=== PATIENT | male | born 1990 | race African-American/Black ===

== ENCOUNTER 2021-01-16 02:25 | Emergency (ER) | payer MEDICAID ==
[~2021-01-16] VITALS: Ht 177.8 cm; Wt 84.8 kg
[2021-01-16] MEDS ORDERED: LORazepam 1MG TABLET ONE (02:47)
--- NOTE | 2021-01-16 02:50 | NUR ---
Pt states "I want to stab myself in the throat" reports hearing voices, takes zyprexa. Garage doors down, belongings to storage locker, CN informed. Will continue to monitor.
--- NOTE | 2021-01-16 02:55 | NUR ---
PATIENT HAS 3 BELONGING BAGS, AND A BLACK BACK-PACK. ALL PLACED IN PSYCH LOCKER BIN #[id number]
[2021-01-16] MEDS ORDERED: LORazepam 1MG TABLET PO ONE (03:00)
[2021-01-16 03:25] LABS: BASOPHILS % (AUTO) 1 % (0-1); EOSINOPHILS % (AUTO) 1 % (1-7); LYMPHOCYTES % (AUTO) 30 % (22-44); MEAN CORPUSCULAR HEMOGLOBIN 34.1 pg (27.5-34.5); MEAN PLATELET VOLUME 7.7 fL (7.4-10.4); MONOCYTES % (AUTO) 6 % (2-9); NEUTROPHILS % (AUTO) 62 % (42-75); PLATELET COUNT 279 x10^3/uL (130-400); RED BLOOD COUNT 4.34 x10^6/uL (4.38-5.82); RED CELL DISTRIBUTION WIDTH 13.2 % (9.4-14.8)
[2021-01-16 03:28] LABS: MD NO
[2021-01-16 03:36] LABS: ANION GAP 4 mmol/L (5-15); CALCIUM 9.2 mg/dL (8.5-10.1); CHLORIDE 104 mmol/L (98-107); CREATININE 1.05 mg/dL (0.7-1.3)
--- NOTE | 2021-01-16 04:02 | NUR ---
Sleeping, RR equal and unlabored. Room secure.
--- NOTE | 2021-01-16 04:36 | NUR ---
Encouraged pt to provide urine sample, pt stated he would try.
--- NOTE | 2021-01-16 05:02 | NUR ---
Pt walked to bathroom, provided urine. Specimen sent to lab. Telepsych at bedside.
[2021-01-16 05:33] LABS: AMPHETAMINE SCREEN, URINE Positive (Negative); BARBITURATE SCREEN, URINE Negative (Negative); BENZODIAZEPINE SCREEN, URINE Negative (Negative); CANNABINOID SCREEN, URINE Positive (Negative); COCAINE SCREEN, URINE Negative (Negative); METHADONE SCREEN, URINE Negative (Negative); OPIATE SCREEN, URINE Negative (Negative)
--- NOTE | 2021-01-16 07:00 | NUR ---
REPORT RECEIVED, CARE ASSUMED. PT SLEEPING IN SECURE ROOM. RR EVEN AND UNLABORED. MEAL TRAY REQUESTED FROM DIETARY. WAITING FOR FURTHER DISPOSITION.
--- NOTE | 2021-01-16 08:05 | NUR ---
MEAL TRAY OFFERED TO PT, DECLINED AT THIS TIME. PT CONT SLEEPING, CONT IN SECURE ROOM WITH SITTER AT DOOR. AWAITING FURTHER EVAL BY [facility] RESPIRATORY THERAPIST.
[2021-01-16 09:15] VITALS: BP 113/79
--- NOTE | 2021-01-16 09:15 | NUR ---
PT CONT MOSTLY SLEEPING, AROUSES TO NAME. V/S COMPLETED. PT CONT TO VERBALIZE SI "SOMETIMES" CURRENTLY DENIES A PLAN. "I DID HAVE ONE" PT DECLINED FOOD AT THIS TIME, "MAYBE LATER" CONT IN SECURE ROOM WITH SITTER AT DOOR.
--- NOTE | 2021-01-16 10:02 | NUR ---
TASK RN: SUDHA (PSYCHIATRY SLUSHER OPERATOR) AT BEDSIDE
--- NOTE | 2021-01-16 10:10 | NUR ---
PT AWAKE SPEAKING TO SUDHA STROUD. CONT IN SECURE ROOM WITH SITTER AT DOOR.
--- NOTE | 2021-01-16 10:29 | NUR ---
PER SUDHA STROUD HOLD RELEASED. WAITING FOR AKI CASTAÑEDA TO SPEAK WITH PT ABOUT GOING TO [facility]. PT TALKING ON PHONE TO HIS MOTHER "MOM I NEED TO GET OUT OF HERE" PT PROVIDED WITH 3 HOSPITAL BAGS OF HIS BELONGINGS AND HIS BACKPACK.
[2021-01-16] MEDS ORDERED: OLANZAPINE 10 MG TABLET PO SCH (10:30)
[2021-01-16] MEDS ORDERED: OLANZAPINE 10 MG TABLET ONE (10:41)
--- NOTE | 2021-01-16 11:14 | NUR ---
RECEIVED CALL FROM PTS MOTHER SCOTT VILLASEÑOR [phone], LIVES IN [place]. RECEIVED PERMISSION FROM JOSE TO SPEAK TO HER. DISCUSSED PT NO LONGER ON HOLD, HAS RECEIVED MEDICATIONS. WE WAITING FOR MADDY PRABHAKAR TO COME AND TALK TO HIM ABOUT [facility]. UNDERSTANDING VERBALIZED.
--- NOTE | 2021-01-16 11:39 | NUR ---
PT SHOWERING. PROVIDED WITH CLEAN LINENS. WAITING FOR ROOM AVAILABILITY AT [facility]. PT COOPERATIVE WITH CARE. LUNCH MEAL REQUESTED FROM PHARMACY.
--- NOTE | 2021-01-16 12:30 | NUR ---
Break RN: Pt provided with lunch.
--- NOTE | 2021-01-16 12:41 | NUR ---
PT MOSTLY SLEEPING. COOPERATIVE WITH CARE. CONT TO WAIT FOR BED AVAILABILITY AT [facility].
--- NOTE | 2021-01-16 13:35 | NUR ---
PT SLEEPING, AROUSES TO NAME AND TOUCH. PT COOPERATIVE WITH CARE. PO FLUIDS AT BEDSIDE. NO NEEDS EXPRESSED AT THIS TIME. CONT TO WAIT FOR BED AVAILABILITY AT [facility]
--- NOTE | 2021-01-16 14:04 | NUR ---
RECEIVED MESSAGE FROM AKI CASTAÑEDA, [facility] READY FOR PT. PT DRESSED. CALLED [facility]. WILL BE 30-35 MIN. REQUEST PROJECT ENGINEERING DIRECTOR TO ASK FOR PT. INFO TO BE RELAYED TO PROJECT ENGINEERING DIRECTOR.
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
== END 2021-01-16 14:49 | disposition home or self-care (01) ==
LOC: ED 02:55
DX: R45.851 Suicidal ideations (principal); R44.0 Auditory hallucinations; F31.9 Bipolar disorder, unspecified
CPT/HCPCS: 36415; 80048; 80299; 80307; 80320; 80329; 82040; 85025; 99283; G0480